=== PATIENT | male | born 1955 | race Caucasian/White ===

== ENCOUNTER 2016-10-23 11:06 | Day surgery (SDC) | payer OTHER | END 2016-10-23 15:09 | disposition home or self-care (01) | LOC: RAD.S 11:06 | PROC: 07DR3ZX Extraction of Iliac Bone Marrow, Percutaneous Approach, Diagnostic (ICD-10-PCS; principal; 2016-10-23) | DX: C90.00 Multiple myeloma not having achieved remission (principal); D70.9 Neutropenia, unspecified; D64.9 Anemia, unspecified; Z79.899 Other long term (current) drug therapy ==

== ENCOUNTER → 2016-10-31 | Outpatient (CLI) | payer OTHER | END | disposition home or self-care (01) | LOC: RAD.S 14:49 | DX: C90.00 Multiple myeloma not having achieved remission (principal); D64.9 Anemia, unspecified; D70.9 Neutropenia, unspecified; M50.322 Other cervical disc degeneration at C5-C6 level; M46.92 Unspecified inflammatory spondylopathy, cervical region; M85.80 Other specified disorders of bone density and structure, unspecified site ==

== ENCOUNTER 2016-12-21 07:08 | Day surgery (SDC) | payer OTHER ==
[~2016-12-21] VITALS: Ht 171.4 cm; Wt 70.5 kg
--- NOTE | 2016-12-27 10:36 | OR ---
ADMIT: 12/21/2016 RM/LOC: [facility] MR#: [id number] [id number] [address] [place] [address] Operative/Delivery Room Report SEX: M AGE: 61 : 1955 SURGERY DATE: 12/21/2016 SURGEON: Mike Stevenson MD PREOPERATIVE DIAGNOSIS: Large and internal and external hemorrhoids; at this point grade 3, but previously grade 4. POSTOPERATIVE DIAGNOSIS: Large and internal and external hemorrhoids; at this point grade 3, but previously grade 4. PROCEDURE PERFORMED: Internal and external hemorrhoidectomy x3 columns; left lateral, right anterior, and right posterior hemorrhoidal columns removed. ANESTHESIA: General endotracheal with addition of Marcaine into the wound. ESTIMATED BLOOD LOSS: Approximately 50 mL. DESCRIPTION OF PROCEDURE: After appropriate informed consent was obtained, the patient was brought to the operating room. General endotracheal anesthesia was induced. He was flipped into prone zack-knife position. Extremities appropriately padded. Buttocks were taped apart. Perianal area was prepped and draped. I started on the left lateral side, this seemed to be the largest hemorrhoidal column. Anal speculum was introduced and a figure-of- eight 3-0 chromic suture was placed up high on the pedicle. This internal- external hemorrhoidal column was then excised in its entirety, peeling this off the sphincter muscles. The hemorrhoid tissue was then handed off. Once I was satisfied with hemostasis, the defect was then closed with a running 3-0 chromic suture. I then turned my attention to the right side. The right posterior hemorrhoidal column was taken next, it seemed to be the next largest column. Similarly, a 3-0 chromic suture was placed in a [id number] fashion, up high on the pedicle. Both internal external and hemorrhoidal tissue were removed being careful to preserve the sphincter muscle. Hemostasis was obtained and then this was closed also with a running 3-0 chromic suture. The smallest hemorrhoid column was a right anterior column. Again in a similar fashion, the pedicle was tied off. Both internal and external hemorrhoids were removed and then the defect closed with a running 3- 0 chromic suture. It should be noted that Marcaine was injected prior to starting the procedure as an anal block. Bacitracin and bulky gauze dressing were then applied. He tolerated the procedure well and was taken to the recovery room in stable condition. Mike Stevenson MD/ prachi JOB #: [id number] CC: Mike Stevenson, Attending Physician Corine Gonzalez, Family Physician
== END 2016-12-21 13:27 | disposition home or self-care (01) ==
LOC: SSS 07:08
PROC: 06BY0ZC Excision of Hemorrhoidal Plexus, Open Approach (ICD-10-PCS; principal; 2016-12-21)
DX: K64.2 Third degree hemorrhoids (principal); K64.4 Residual hemorrhoidal skin tags; C90.00 Multiple myeloma not having achieved remission; Z98.890 Other specified postprocedural states